=== PATIENT | female | born 1995 | race Caucasian/White ===

== ENCOUNTER 2022-03-31 10:43 | Emergency (ER) | payer MEDICAID, OTHER ==
[~2022-03-31] VITALS: Ht 165.1 cm; Wt 72.5 kg
[2022-03-31] MEDS ORDERED: ASPIRIN 81 MG CHEW (CHILDREN'S ASA) PO ONE (11:15)
--- NOTE | 2022-03-31 11:17 | ED Chest Pain ---
General Chief Complaint: Chest Pain Stated Complaint: CHEST PAINS Nursing Triage Note: C/ CP ADN SHORTNESS OF BREATH STATES HAS HAD SOME COUGHING AND PAIN IS REPRODUCEABLE. (KORI RUTLEDGE APRN) History of Present Illness Date Seen by Provider: Mar 31, 2022 Time Seen by Provider: 11:05 Initial Comments Patient is a previously healthy 26-year-old female who presents to the emergency department for evaluation of anterior chest pain that began approximately 3 days ago. She states she also has some intermittent shortness of breath that does appear to be slightly worse on exertion. She states she has also had a mild cough. Pain is worse with deep inspiration. She denies any recent chest trauma. She also denies any dependent edema or syncope/near syncope. No history of cardiopulmonary disease. Patient states she is currently on her menses. She took a dose of naproxen this a.m. for the pain with minimal improvement. (KORI RUTLEDGE APRN) Allergies and Home Medications Allergies Uncoded Allergies: PENICILLIN (Allergy, Unknown, 03/31/22) Patient Home Medication List Home Medication List Reviewed: Yes (KORI RUTLEDGE APRN) Ibuprofen (Ibuprofen) 600 Mg Tablet, 600 MG PO Q6H PRN for PAIN-MILD Prescribed by: Kori Rutledge on 03/31/22 1226 Review of Systems Review of Systems Constitutional: no symptoms reported EENTM: No Symptoms Reported Respiratory: See HPI, Cough Cardiovascular: See HPI, Chest Pain Gastrointestinal: No Symptoms Reported Genitourinary: No Symptoms Reported Musculoskeletal: no symptoms reported Skin: no symptoms reported (KORI RUTLEDGE APRN) Past Arycldv-Pnsqdd-Qhgalg Hx Patient Social History Tobacco Use?: Yes Tobacco type used: Cigarettes Smoking Status: Current Everyday Smoker Use of E-Cig and/or Vaping dev: No Substance use?: No Alcohol Use?: No Pt feels they are or have been: No (KORI RUTLEDGE APRN) Immunizations Up To Date Influenza Vaccine Up-to-Date: Yes; Up-to-Date (KORI RUTLEDGE APRN) Past Medical History Surgery/Hospitalization HX: DENIES MH Last Menstrual Period: Mar 29, 2022 (KORI RUTLEDGE APRN) Physical Exam Vital Signs Vital Signs - First Documented 03/31/22 10:50 Temp 36.8 Pulse 57 Resp 18 B/P (MAP) 149/89 (109) Pulse Ox 99 O2 Delivery Room Air (ONEIDA BACH MD) Vital Signs Capillary Refill : Less Than 3 Seconds (KORI RUTLEDGE APRN) Height, Weight, BMI Height: '" Weight: lbs. oz. kg; 26.00 BMI Method: General Appearance: No Apparent Distress, WD/WN HEENT: PERRL/EOMI, TMs Normal, Normal ENT Inspection, Pharynx Normal Neck: Full Range of Motion, Normal Inspection, Non Tender, Supple Respiratory: Lungs Clear, Normal Breath Sounds, Other (Tenderness to palpation noted to the costochondral cartilage both sides of upper sternum) Cardiovascular: Regular Rate, Rhythm Gastrointestinal: Non Tender, Soft Extremity: Normal Range of Motion, Non Tender Neurologic/Psychiatric: Alert, Oriented x3, No Motor/Sensory Deficits, Normal Mood/Affect, lung puller II-XII Norm as Tested Skin: Normal Color, Warm/Dry (KORI RUTLEDGE APRN) Progress/Results/Core Measures Results/Orders Lab Results Laboratory Tests Test 03/31/22 10:55 03/31/22 11:05 03/31/22 12:06 Range/Units White Blood Count 6.8 4.3-11.0 10^3/uL Red Blood Count 5.09 3.80-5.11 10^6/uL Hemoglobin 15.6 11.5-16.0 g/dL Hematocrit 44 35-52 % Mean Corpuscular Volume 87 80-99 fL Mean Corpuscular Hemoglobin 31 25-34 pg Mean Corpuscular Hemoglobin Concent 35 32-36 g/dL Red Cell Distribution Width 11.9 10.0-14.5 % Platelet Count 251 130-400 10^3/uL Mean Platelet Volume 9.4 9.0-12.2 fL Immature Granulocyte % (Auto) 0 % Neutrophils (%) (Auto) 59 42-75 % Lymphocytes (%) (Auto) 29 12-44 % Monocytes (%) (Auto) 10 0-12 % Eosinophils (%) (Auto) 1 0-10 % Basophils (%) (Auto) 0 0-10 % Neutrophils # (Auto) 4.0 1.8-7.8 10^3/uL Lymphocytes # (Auto) 2.0 1.0-4.0 10^3/uL Monocytes # (Auto) 0.7 0.0-1.0 10^3/uL Eosinophils # (Auto) 0.1 0.0-0.3 10^3/uL Basophils # (Auto) 0.0 0.0-0.1 10^3/uL Immature Granulocyte # (Auto) 0.0 0.0-0.1 10^3/uL Prothrombin Time 13.7 12.2-14.7 SEC INR Comment 1.0 0.8-1.4 Activated Partial Thromboplast Time 28 24-35 SEC Sodium Level 141 135-145 MMOL/L Potassium Level 3.3 L 3.6-5.0 MMOL/L Chloride Level 108 H 98-107 MMOL/L Carbon Dioxide Level 18 L 21-32 MMOL/L Anion Gap 15 H 5-14 MMOL/L Blood Urea Nitrogen 12 7-18 MG/DL Creatinine 0.77 0.60-1.30 MG/DL Estimat Glomerular Filtration Rate 110 BUN/Creatinine Ratio 16 Glucose Level 93 70-105 MG/DL Calcium Level 11.2 H 8.5-10.1 MG/DL Corrected Calcium 8.5-10.1 MG/DL Magnesium Level 1.9 1.6-2.4 MG/DL Total Bilirubin 0.9 0.1-1.0 MG/DL Aspartate Amino Transf (AST/SGOT) 16 5-34 U/L Alanine Aminotransferase (ALT/SGPT) 20 0-55 U/L Alkaline Phosphatase 65 40-136 U/L Troponin I < 0.028 <0.028 NG/ML Total Protein 7.9 6.4-8.2 GM/DL Albumin 4.9 H 3.2-4.5 GM/DL Influenza Type A (RT-PCR) Not Detected Not Detecte Influenza Type B (RT-PCR) Not Detected Not Detecte SARS-CoV-2 RNA (RT-PCR) Not Detected Not Detecte Urine Test NEGATIVE NEGATIVE (ONEIDA BACH MD) My Orders Orders - ONEIDA BACH MD Ekg Tracing (03/31/22 10:47) (ONEIDA BACH MD) Medications Given in ED Current Medications Medications Dose Ordered Sig/Maryjane Route Start Time Stop Time Status Last Admin Dose Admin Aspirin 324 mg ONCE ONCE PO 03/31/22 11:15 03/31/22 11:16 DC 03/31/22 11:22 324 MG Ketorolac Tromethamine 15 mg ONCE ONCE IVP 03/31/22 12:30 03/31/22 12:31 DC 03/31/22 12:30 15 MG (ONEIDA BACH MD) Vital Signs/I&O 03/31/22 03/31/22 10:50 12:32 Temp 36.8 Pulse 57 52 Resp 18 14 B/P (MAP) 149/89 (109) 121/94 Pulse Ox 99 99 O2 Delivery Room Air Room Air (ONEIDA BACH MD) Blood Pressure Mean: 109 Progress Progress Note : Progress Note Patient is nontoxic and well-hydrated on exam. No adventitious lung sounds or increased work of breathing breathing noted. Vital signs are reassuring without tachycardia or hypoxia. Pain is easily reproducible with palpation of the borders of the upper sternum. Low suspicion for ACS at this time. EKG without acute ischemic change or arrhythmia. Chest x-ray acutely negative. hCG negative. Laboratory evaluation unremarkable. Troponin negative. Will discharge home with recommendations for supportive care and close follow-up with PCP. Return precautions for urgent symptomology discussed. Patient verbalized understanding. (KORI RUTLEDGE APRN) Departure Impression Primary Impression: Chest pain Qualified Codes: R07.1 - Chest pain on breathing Disposition: HOME, SELF-CARE Condition: Stable Departure-Patient Inst. Decision time for Depature: 12:20 (KORI RUTLEDGE APRN) Referrals: NO,LOCAL PHYSICIAN (PCP/Family) Primary Care Physician Patient Instructions: Chest Pain That Is Not Caused by the Heart (DC) Scripts Ibuprofen (Ibuprofen) 600 Mg Tablet 600 MG PO Q6H PRN for PAIN-MILD for 5 Days, #20 TAB 0 Refills Prov: KORI RUTLEDGE APRN 03/31/22 ATTENDING PHYSICIAN NOTE: I was physically present as attending physician in the emergency department during the care of this patient, but I was not directly involved in the decision making or delivery of care for this patient. (ONEIDA BACH MD) KORI RUTLEDGE APRN Mar 31, 2022 11:17 ONEIDA BACH MD Mar 31, 2022 20:25
[2022-03-31 11:19] LABS: BASOPHILS % (AUTO) 0 % (0-10); EOSINOPHILS # (AUTO) 0.1 10^3/uL (0.0-0.3); EOSINOPHILS % (AUTO) 1 % (0-10); HEMATOCRIT 44 % (35-52); HEMOGLOBIN 15.6 g/dL (11.5-16.0); LYMPHOCYTES % (AUTO) 29 % (12-44); MEAN CORPUSCULAR HEMOGLOBIN 31 pg (25-34); MEAN CORPUSCULAR HGB CONC 35 g/dL (32-36); MEAN CORPUSCULAR VOLUME 87 fL (80-99); MEAN PLATELET VOLUME 9.4 fL (9.0-12.2); MONOCYTES # (AUTO) 0.7 10^3/uL (0.0-1.0); MONOCYTES % (AUTO) 10 % (0-12); NEUTROPHILS % (AUTO) 59 % (42-75); PLATELET COUNT 251 10^3/uL (130-400); WHITE BLOOD COUNT 6.8 10^3/uL (4.3-11.0)
[2022-03-31 11:22] LABS: ALBUMIN 4.9 GM/DL (3.2-4.5)
[2022-03-31 11:23] LABS: CHLORIDE 108 MMOL/L (98-107); POTASSIUM 3.3 MMOL/L (3.6-5.0); SODIUM 141 MMOL/L (135-145)
[2022-03-31 11:24] LABS: CALCIUM 11.2 MG/DL (8.5-10.1); PROTHROMBIN TIME PATIENT 13.7 SEC (12.2-14.7)
[2022-03-31 11:25] LABS: GLUCOSE 93 MG/DL (70-105); TOTAL PROTEIN 7.9 GM/DL (6.4-8.2)
[2022-03-31 11:26] LABS: CARBON DIOXIDE 18 MMOL/L (21-32)
[2022-03-31 11:27] LABS: BILIRUBIN,TOTAL 0.9 MG/DL (0.1-1.0)
[2022-03-31 11:28] LABS: ALKALINE PHOSPHATASE 65 U/L (40-136); CREATININE SERUM 0.77 MG/DL (0.60-1.30); GFR ESTIMATED 110
[2022-03-31 11:30] LABS: BUN/CREATININE RATIO 16
[2022-03-31 11:31] LABS: ALANINE AMINOTRANSFERASE 20 U/L (0-55); MAGNESIUM 1.9 MG/DL (1.6-2.4)
--- NOTE | 2022-03-31 11:43 | Diagnostic Imaging Report ---
CHEST 1 VIEW, AP/PA ONLY Indication: Chest pain. Comparison: None available. Findings: No focal airspace disease in the visualized lungs. No pleural effusion or pneumothorax. Normal cardiomediastinal silhouette. Impression: 1. No acute cardiopulmonary process by portable radiography. Dictated by: Dictated on workstation # [id number]
[2022-03-31] MEDS ORDERED: IBUP-1773 PO (12:26)
[2022-03-31] MEDS ORDERED: KETOROLAC 30 MG/ML VIAL IVP ONE (12:30)
[2022-03-31 12:32] VITALS: BP 121/94
== END 2022-03-31 12:38 | disposition home or self-care (01) ==
LOC: EDUNIT# 10:43 → ER 10:46
DX: R07.2 Precordial pain (principal); F17.210 Nicotine dependence, cigarettes, uncomplicated; Z28.310 Unvaccinated for COVID-19; Z20.822 Contact with and (suspected) exposure to COVID-19
CPT/HCPCS: 36415; 71045; 80053; 83735; 84484; 84703; 85025; 85610; 85730; 87636; 93005; 93041

== ENCOUNTER 2023-03-01 11:39 | Emergency (ER) | payer SELFPAY ==
[~2023-03-01 11:39] MED LIST: IBUP-1773 PO
[2023-03-01] MEDS ORDERED: dexAMETHasone INJ 10 MG/ML 1 ML VIAL IM ONE (12:00)
[2023-03-01] MEDS ORDERED: ORPHENADRINE 60 MG/2 ML AMP (ED ONLY) IM ONE (12:00)
[2023-03-01] MEDS ORDERED: KETOROLAC INJ 15 MG/ML VIAL IM ONE (12:00)
--- NOTE | 2023-03-01 12:03 | ED Back Pain ---
General Chief Complaint: Back Problems Stated Complaint: LT LEG NUMBNESS | LOWER BACK PAIN Nursing Triage Note: PT AMB TO RM 5 CO OF BACK PAIN 7/10 FOR APPROX 1 MONTH, PT STATES LAST NIGHT L LEG WENT NUMB FROM BUTTOCK TO TOES. PT IS ABLE TO AMBULATE AND MOVE TOES. DENIES NUMBNESS IN CROTCH AREA. Source of Information: Patient Exam Limitations: No Limitations History of Present Illness Date Seen by Provider: Mar 01, 2023 Time Seen by Provider: 11:49 Initial Comments 27-year-old female presents to the ER with complaint of her whole left leg going numb starting last night at 9:30 PM. She states that she has had pain from her left buttock down the posterior portion of her leg to her ankle for the last month. Denies any known injury. She describes the pain as a sharp pain. She states that her entire leg is numb including her inner thigh, but denies groin numbness. Denies pain in her lower back or spine. Denies fevers, chest pain, shortness of air, abdominal pain, nausea, vomiting, diarrhea, dysuria. Last bowel movement was this morning and normal. She denies bowel and bladder incontinence. She ambulated to the room. Allergies and Home Medications Allergies Uncoded Allergies: PENICILLIN (Allergy, Unknown, 03/31/22) Patient Home Medication List Home Medication List Reviewed: Yes Cyclobenzaprine HCl (Cyclobenzaprine HCl) 10 Mg Tablet, 10 MG PO TID Prescribed by: Lori Hutson on 03/01/23 1307 Ibuprofen (Ibuprofen) 600 Mg Tablet, 600 MG PO Q6H PRN for PAIN-MILD Prescribed by: Cricket Rutledge on 03/31/22 1226 Methylprednisolone (Methylprednisolone Dose Pack) 4 Mg Tablet, 4 MG PO UD Prescribed by: Lori Hutson on 03/01/23 1307 Review of Systems Constitutional: see HPI Past Zvzjubo-Bjlhde-Ljuyjw Hx Patient Social History Tobacco Use?: No Use of E-Cig and/or Vaping dev: Yes E-Cig or Vaping type used: Nicotine Use of E-Cig and/or Vaping Raghavendra: Current Everyday User Substance use?: Yes Substance type: Marijuana Substance frequency: Once in a while Alcohol Use?: No Pt feels they are or have been: No Past Medical History Surgery/Hospitalization HX: DENIES MH Last Menstrual Period: Feb 19, 2023 Physical Exam Vital Signs Vital Signs - First Documented 03/01/23 11:45 Temp 36.8 Pulse 68 Resp 18 B/P (MAP) 146/88 (107) Pulse Ox 97 Capillary Refill : Less Than 3 Seconds Height, Weight, BMI Height: '" Weight: lbs. oz. kg; 26.00 BMI Method: General Appearance: No Apparent Distress, WD/WN Neck: Normal Inspection, Supple Cardiovascular: Regular Rate, Rhythm Respiratory: Lungs Clear, Normal Breath Sounds, No Accessory Muscle Use, No Respiratory Distress Back: Normal Inspection, No Vertebral Tenderness Extremity: Normal Capillary Refill, Normal Inspection, Normal Range of Motion, Other (Normal strength, patient reports decreased sensation in left foot) Neurologic/Psychiatric: Alert, No Motor/Sensory Deficits, Normal Mood/Affect Skin: Normal Color, Warm/Dry Progress/Results/Core Measures Results/Orders My Orders Orders - LORI HOUSE APRN Ketorolac Injection (Ketorolac Injection (03/01/23 12:00) Orphenadrine Inj (Ed Only) (Orphenadrine (03/01/23 12:00) Dexamethasone Injection (Dexamethasone (03/01/23 12:00) Medications Given in ED Current Medications Medications Dose Ordered Sig/Maryjane Route Start Time Stop Time Status Last Admin Dose Admin Dexamethasone Sodium Phosphate 10 mg ONCE ONCE IM 03/01/23 12:00 03/01/23 12:01 DC 03/01/23 12:24 10 MG Ketorolac Tromethamine 15 mg ONCE ONCE IM 03/01/23 12:00 03/01/23 12:01 DC 03/01/23 12:25 15 MG Orphenadrine Citrate 60 mg ONCE ONCE IM 03/01/23 12:00 03/01/23 12:01 DC 03/01/23 12:24 60 MG Vital Signs/I&O 03/01/23 11:45 Temp 36.8 Pulse 68 Resp 18 B/P (MAP) 146/88 (107) Pulse Ox 97 Blood Pressure Mean: 107 Progress Progress Note : Progress Note Patient seen and evaluated, resting comfortably in bed, no acute distress. Based on exam and symptoms, this is likely sciatic nerve pain. I am less concerned for cauda equina syndrome due to entire leg being numb, no groin numbness, no bowel or bladder incontinence, patient is able to ambulate, and has normal strength. Will treat with Toradol, Decadron, and Norflex. 1304 patient reports some improvement in the numbness and pain. Will proceed with discharge at this time. Will discharge with Flexeril and Medrol Dosepak. Patient instructed to continue taking ibuprofen. Discharge instructions and return precautions provided. Departure Impression Primary Impression: Sciatic nerve pain Qualified Codes: M54.32 - Sciatica, left side Disposition: 01 HOME, SELF-CARE Condition: Stable Departure-Patient Inst. Decision time for Depature: 13:04 Referrals: [facility] J[facility],LOCAL PHYSICIAN (PCP) Primary Care Physician Patient Instructions: Sciatica Add. Discharge Instructions: Follow-up with a primary care provider. I have provided the phone number to the [facility], you can call them to establish a primary care provider. Take the Medrol Dosepak as prescribed. Take Flexeril up to 3 times a day as needed for pain. It may make you sleepy. Take 800 mg of ibuprofen every 8 hours with food as needed for pain. You may also take 1000 mg of Tylenol every 8 hours as needed for pain. Return for numbness in your groin, or inner thighs, inability to walk, urinating or defecating on yourself, or any other new, concerning, or worsening symptoms. All discharge instructions reviewed with patient and/or family. Voiced understanding. Scripts Cyclobenzaprine HCl (Cyclobenzaprine HCl) 10 Mg Tablet 10 MG PO TID, #21 TAB 0 Refills Prov: LORI HOUSE APRN 03/01/23 Methylprednisolone (Methylprednisolone Dose Pack) 4 Mg Tablet 4 MG PO UD for 6 Days, #21 TAB 0 Refills FOLLOW DOSE PACK INSTRUCTIONS Prov: LORI HOUSE APRN 03/01/23 LORI HOUSE APRN Mar 01, 2023 12:03
[2023-03-01] MEDS ORDERED: CYCL10TA25 PO (13:07)
[2023-03-01] MEDS ORDERED: METH4TAB11 PO (13:07)
[2023-03-01 13:11] VITALS: BP 130/78
== END 2023-03-01 13:11 | disposition home or self-care (01) ==
LOC: EDUNIT# 11:39 → ER 11:41
DX: M54.32 Sciatica, left side (principal); F17.290 Nicotine dependence, other tobacco product, uncomplicated
CPT/HCPCS: 96372; 99284